=== PATIENT | male | born 1940 | race Caucasian/White ===

== ENCOUNTER 2020-11-11 20:17 | Emergency (ER) | payer MEDICARE, OTHER ==
[~2020-11-11] VITALS: Ht 172.7 cm; Wt 67.8 kg
[2020-11-11 20:22] VITALS: BP 167/89
--- NOTE | 2020-11-11 20:42 | ED Upper Extremity ---
General Chief Complaint: Upper Extremity Stated Complaint: LAC ON RT ARM Nursing Triage Note: Pt in per POV with c/o right arm being shut in car door. Noted large skin tear and bleeding controlled. Cleaned with hibicleans. Nursing Sepsis Screen: No Definite Risk History of Present Illness Date Seen by Provider: Nov 11, 2020 Time Seen by Provider: 20:17 Initial Comments 80-year-old male presents with a skin tear to his right forearm. Accidental injury hitting on a door. Denies any other pain or injury. Ambulatory and in no distress. Allergies and Home Medications Patient Home Medication List Home Medication List Reviewed: Yes Review of Systems Constitutional: No fever, No malaise, No weakness Musculoskeletal: No back pain, No joint pain, No neck pain Skin: see HPI, other (skin tear- right forearm) Past Ymydtxp-Zlxcdi-Pilxqp Hx Past Med/Social Hx: Reviewed Nursing Past Med/Soc Hx Patient Social History Alcohol Use: Occasionally Uses Smoking Status: Former Smoker Type Used: Cigarettes 2nd Hand Smoke Exposure: No Recent Infectious Disease Expo: No Immunizations Up To Date Tetanus Booster (TDap): Unknown Physical Exam Vital Signs Vital Signs - First Documented 11/11/20 20:22 Temp 36.3 Pulse 62 Resp 16 B/P (MAP) 167/89 (115) Pulse Ox 96 O2 Delivery Room Air Capillary Refill : Less Than 3 Seconds Height, Weight, BMI Height: '" Weight: lbs. oz. kg; 22.00 BMI Method: General Appearance: WD/WN, no apparent distress Shoulder: normal inspection, non-tender, no evidence of injury Elbow/Forearm: normal inspection, non-tender, normal ROM, soft tissue tenderness (superficial skin tear- dorsum R forearm- 10cm) Wrist: Yes normal inspection, Yes non-tender, Yes no evidence of injury, Yes normal ROM Hand: normal inspection, non-tender, no evidence of injury, normal ROM Neurologic/Tendon: normal sensation, normal motor functions, normal tendon functions, responds to pain Neurologic/Psychiatric: no motor/sensory deficits, alert, normal mood/affect Procedures/Interventions Other Wound Location forearm- right Wound Length (cm): 10 Wound's Depth, Shape: superficial (skin tear) Wound Explored: clean Betadine Prep?: No (sure cleans and rinse) Other Closure Supply: Steri Strip 1/2", Mastisol Sterile Dressing Applied?: Yes Progress/Results/Core Measures Results/Orders Vital Signs/I&O 11/11/20 20:22 Temp 36.3 Pulse 62 Resp 16 B/P (MAP) 167/89 (115) Pulse Ox 96 O2 Delivery Room Air Blood Pressure Mean: 115 Departure Impression Primary Impression: Skin tear Disposition: HOME, SELF-CARE Condition: Improved Departure-Patient Inst. Decision time for Depature: 20:41 Referrals: NATHAN MCDUFFIE MD (PCP/Family) Primary Care Physician Patient Instructions: Laceration Repair With Glue (DC) Add. Discharge Instructions: Follow up with Abraham in 3 to 5 days for evaluation of your skin tear. Watch for sign of infection All discharge instructions reviewed with patient and/or family. Voiced understanding. CATHERINE MARTINEZ DO Nov 11, 2020 20:42
== END 2020-11-11 20:48 | disposition home or self-care (01) ==
LOC: ER FS 20:19
DX: S51.811A Laceration without foreign body of right forearm, initial encounter (principal); Z87.891 Personal history of nicotine dependence; W23.0XXA Caught, crushed, jammed, or pinched between moving objects, initial encounter

== ENCOUNTER 2021-02-17 16:41 | Emergency (ER) | payer MEDICARE ==
[~2021-02-17] VITALS: Ht 175 cm; Wt 75.0 kg
[2021-02-17 16:43] VITALS: BP 140/61
--- NOTE | 2021-02-17 17:14 | ED General ---
General Chief Complaint: Skin/Wound Problems Stated Complaint: FALL Nursing Triage Note: PT TRIPPED AT [facility] AND HAS A SKIN TEAR ON HIS LEFT ELOBOW AND AN ABRASION ON HIS 3RD FINGER. NO LOSS OF CONSCIOUSNESS AND DENIES HITTING HIS HEAD. History of Present Illness Date Seen by Provider: Feb 17, 2021 Time Seen by Provider: 17:09 Initial Comments Patient presenting to the emergency department for evaluation of a left elbow skin tear that was sustained shortly prior to arrival at his snf. Patient cannot provide much help with history as he says he was out taking care of his horses when one of the horses knocked him down to the ground. alf reports that he tripped and sustained a mechanical fall. Patient denies having pain anywhere besides the skin on his left elbow. In the records it appears that he had a tetanus shot in 2018. Patient denies any head neck chest abdomen back or other extremity pain and no weakness numbness or tingling. He does have a history of dementia and takes Eliquis. He is in no acute distress with normal vital signs. Allergies and Home Medications Patient Home Medication List Home Medication List Reviewed: Yes Review of Systems Review of Systems Constitutional: no symptoms reported Respiratory: no symptoms reported Cardiovascular: no symptoms reported Gastrointestinal: no symptoms reported Musculoskeletal: no symptoms reported Skin: other (Skin tear on left elbow) Psychiatric/Neurological: No Symptoms Reported All Other Systems Reviewed Negative Unless Noted: Yes Past Tvuhmgd-Lazxvy-Pojotk Hx Patient Social History Tobacco Use?: No Use of E-Cig and/or Vaping dev: No Substance use?: No Alcohol Use?: No Pt feels they are or have been: No Immunizations Up To Date Tetanus Booster (TDap): Unknown First/Initial COVID19 Vaccinat: 08/26/20 Second COVID19 Vaccination Gigi: 09/23/20 Physical Exam Vital Signs Vital Signs - First Documented 02/17/21 16:43 Temp 37.2 Pulse 52 Resp 18 B/P (MAP) 140/61 (87) Pulse Ox 97 O2 Delivery Room Air Capillary Refill : Less Than 3 Seconds Height, Weight, BMI Height: '" Weight: lbs. oz. kg; 24.00 BMI Method: General Appearance: No Apparent Distress, Chronically ill HEENT: PERRL/EOMI Neck: Supple Respiratory: Lungs Clear, No Respiratory Distress Cardiovascular: Regular Rate, Rhythm Gastrointestinal: Non Tender, Soft Back: Normal Inspection, No Vertebral Tenderness Extremity: Other (Large hematoma to left elbow but no pain with range of motion of all his joints including his left elbow) Neurologic/Psychiatric: Alert, Disoriented Skin: Other (Skin tear to left elbow with no deep open wound and no foreign body seen in a bloodless field.) Progress/Results/Core Measures Suspected Sepsis SIRS Temperature: Pulse: 52 Respiratory Rate: 18 Blood Pressure 140 /61 Mean: 87 Results/Orders My Orders Orders - CARYL HALL DO Ct Head Wo (02/17/21 16:56) Elbow 2 View Left (02/17/21 16:56) Vital Signs/I&O 02/17/21 16:43 Temp 37.2 Pulse 52 Resp 18 B/P (MAP) 140/61 (87) Pulse Ox 97 O2 Delivery Room Air Capillary Refill : Less Than 3 Seconds Blood Pressure Mean: 87 Progress Note : Progress Note It appears the wound is more of a skin tear than anything else and there is no need for sutures so the wound was Steri-Stripped and dressed after being cleansed with Hibiclens and irrigated copiously. Patient is confused which may be his baseline but given he is on Eliquis I am going to do a CT head to rule out any bleeding and an x-ray of his left elbow. Imaging is negative for acute process and family confirmed that he is at his neurologic baseline. Given he appears well with normal vital signs benign physical exam and work-up he will be discharged back to the snf in stable condition told to follow with primary provider within 2 to 3 days and come back to the ED sooner with any worsening pain neurologic changes or other general concerns. Patient and family aware and agreeable with plan. Departure Impression Primary Impression: Elbow contusion Qualified Codes: S50.02XA - Contusion of left elbow, initial encounter Additional Impression: Skin tear of elbow without complication Qualified Codes: S51.012A - Laceration without foreign body of left elbow, initial encounter Disposition: 01 HOME, SELF-CARE Condition: Stable Departure-Patient Inst. Referrals: NATHAN MCDUFFIE MD (PCP/Family) Primary Care Physician Patient Instructions: Wound Care (DC) CARYL HALL DO Feb 17, 2021 17:14
--- NOTE | 2021-02-17 17:27 | Diagnostic Imaging Report ---
PROCEDURE: CT head without contrast. TECHNIQUE: Multiple contiguous axial images were obtained through the brain without the use of intravenous contrast. Auto Exposure Controls were utilized during the CT exam to meet ALARA standards for radiation dose reduction. INDICATION: Fall. No prior studies are available for comparison. Ventricles and sulci are prominent consistent with cerebral volume loss. There is moderate periventricular hypodensity noted consistent with senescent change. No sulcal effacement is seen. There is no midline shift. No acute intra-axial or extra-axial hemorrhage is detected. Cisterns are patent. Visualized paranasal sinuses are clear. IMPRESSION: Senescent and chronic changes. No acute intracranial process is detected. Dictated by: Dictated on workstation # [id number]
--- NOTE | 2021-02-17 17:28 | Diagnostic Imaging Report ---
INDICATION: Fall. TIME OF EXAM: 5:17 p.m. Two views of the left elbow were obtained. There appears to be some soft tissue swelling along the posterior elbow. Alignment is normal. No acute bony abnormality is detected. There is no dislocation. IMPRESSION: Soft tissue swelling posteriorly. No acute bony abnormality is detected. Dictated by: Dictated on workstation # [id number]
== END 2021-02-17 17:35 | disposition home or self-care (01) ==
LOC: EDUNIT# 16:41 → ER FS 16:45
DX: S51.012A Laceration without foreign body of left elbow, initial encounter (principal); F03.90 Unspecified dementia, unspecified severity, without behavioral disturbance, psychotic disturbance, mood disturbance, and anxiety; W01.0XXA Fall on same level from slipping, tripping and stumbling without subsequent striking against object, initial encounter
CPT/HCPCS: 70450; 73070

== ENCOUNTER 2021-04-12 14:09 | Emergency (ER) | payer MEDICARE ==
[~2021-04-12] VITALS: Ht 172.7 cm; Wt 75.0 kg
[2021-04-12 14:15] VITALS: BP 157/83
[2021-04-12 14:32] LABS: BASOPHILS # (AUTO) 0.1 10^3/uL (0.0-0.1); BASOPHILS % (AUTO) 1 % (0-10); EOSINOPHILS % (AUTO) 0 % (0-10); HEMATOCRIT 37 % (40-54); LYMPHOCYTES # (AUTO) 0.4 X 10^3 (1.0-4.0); LYMPHOCYTES % (AUTO) 5 % (12-44); MEAN CORPUSCULAR HEMOGLOBIN 28 pg (25-34); MEAN CORPUSCULAR HGB CONC 32 g/dL (32-36); MEAN CORPUSCULAR VOLUME 86 fL (80-99); MEAN PLATELET VOLUME 10.7 fL (9.0-12.2); MONOCYTES # (AUTO) 0.5 X 10^3 (0.0-1.0); MONOCYTES % (AUTO) 7 % (0-12); NEUTROPHILS % (AUTO) 86 % (42-75); PLATELET COUNT 168 10^3/uL (130-400)
--- NOTE | 2021-04-12 14:34 | ED General ---
General Chief Complaint: Respiratory Problems Stated Complaint: SOA Source of Information: Patient, EMS, [facility] Records History of Present Illness Date Seen by Provider: Apr 12, 2021 Time Seen by Provider: 14:12 Initial Comments 80-year-old demented male presenting from local senior living. He was found laying on the floor and reportedly had a low oxygen saturation. He had an unwitnessed fall in the head contusion to his right forehead and complained of pain to the right neck and right chest. He had a normal oxygen saturation for EMS when they arrived 92 to 94% on room air. He denies having any cough and is not active short of breath. He denies having any abdominal pain or nausea or vomiting. He was afebrile here in the ED. Allergies and Home Medications Allergies Coded Allergies: No Known Drug Allergies (Unverified , 04/12/21) Patient Home Medication List Home Medication List Reviewed: Yes Review of Systems Review of Systems Constitutional: No chills, No fever EENTM: other (Contusion to the right forehead) Cardiovascular: chest pain (mild right chest pain with palpation. no crepitus) Gastrointestinal: no symptoms reported Genitourinary: no symptoms reported Musculoskeletal: neck pain (right sided neck pain) Skin: other (contusion with erythema to right forehead) Psychiatric/Neurological: Other (dementia and has difficulty answering questions) Past Cynwfoi-Qlskgj-Kivzll Hx Immunizations Up To Date Tetanus Booster (TDap): Unknown Past Medical History Respiratory: No Cardiac: Yes Chronic Edema/Swelling, Hypertension, Irregular Heartbeat Neurological: Yes Dementia Physical Exam Vital Signs Vital Signs - First Documented 04/12/21 14:15 Temp 37.4 Pulse 83 Resp 18 B/P (MAP) 157/83 (107) Pulse Ox 93 O2 Delivery Room Air Capillary Refill : Height, Weight, BMI Height: '" Weight: lbs. oz. kg; 24.00 BMI Method: General Appearance: No Apparent Distress, Chronically ill HEENT: No Moist Mucous Membranes (slightly dry mucous membranes) Neck: Tender Lateral (mild tenderness to lateral muscles of neck on right side) Respiratory: No Accessory Muscle Use, No Respiratory Distress, Decreased Breath Sounds, Other (poor inspiratory effort on exam with decreased breath sounds in bases. tender to palpation right chest wall without crepitus) Cardiovascular: Normal Peripheral Pulses, Irregularly Irregular Gastrointestinal: Normal Bowel Sounds, No Pulsatile Mass, Non Tender, Soft Rectal: Deferred Extremity: Normal Capillary Refill, Pedal Edema Neurologic/Psychiatric: Alert; No Oriented x3 (oriented to self) Skin: Warm/Dry, Other (mild erythema to contusion on right forehead) Focused Exam Lactate Level 04/12/21 14:20: Lactic Acid Level 2.17*H Lactic Acid Level Laboratory Tests Test 04/12/21 14:20 Lactic Acid Level 2.17 MMOL/L (0.50-2.00) *H Progress/Results/Core Measures Suspected Sepsis SIRS Temperature: Pulse: Respiratory Rate: Laboratory Tests 04/12/21 14:20: White Blood Count 7.0 Blood Pressure / Mean: 04/12/21 14:20: Lactic Acid Level 2.17*H Laboratory Tests 04/12/21 14:20: Creatinine 0.75, INR Comment 1.5H, Platelet Count 168, Total Bilirubin 0.9 Results/Orders Lab Results Laboratory Tests Test 04/12/21 14:20 Range/Units White Blood Count 7.0 4.3-11.0 10^3/uL Red Blood Count 4.30 4.30-5.52 10^6/uL Hemoglobin 12.0 L 13.3-17.7 g/dL Hematocrit 37 L 40-54 % Mean Corpuscular Volume 86 80-99 fL Mean Corpuscular Hemoglobin 28 25-34 pg Mean Corpuscular Hemoglobin Concent 32 32-36 g/dL Red Cell Distribution Width 18.5 H 10.0-14.5 % Platelet Count 168 130-400 10^3/uL Mean Platelet Volume 10.7 9.0-12.2 fL Immature Granulocyte % (Auto) 0 % Neutrophils (%) (Auto) 86 H 42-75 % Lymphocytes (%) (Auto) 5 L 12-44 % Monocytes (%) (Auto) 7 0-12 % Eosinophils (%) (Auto) 0 0-10 % Basophils (%) (Auto) 1 0-10 % Neutrophils # (Auto) 6.0 1.8-7.8 X 10^3 Lymphocytes # (Auto) 0.4 L 1.0-4.0 X 10^3 Monocytes # (Auto) 0.5 0.0-1.0 X 10^3 Eosinophils # (Auto) 0.0 0.0-0.3 10^3/uL Basophils # (Auto) 0.1 0.0-0.1 10^3/uL Immature Granulocyte # (Auto) 0.0 0.0-0.1 10^3/uL Neutrophils % (Manual) 82 % Lymphocytes % (Manual) 10 % Monocytes % (Manual) 6 % Eosinophils % (Manual) 1 % Basophils % (Manual) 1 % Prothrombin Time 18.2 H 12.2-14.7 SEC INR Comment 1.5 H 0.8-1.4 Activated Partial Thromboplast Time 39 H 24-35 SEC Sodium Level 132 L 135-145 MMOL/L Potassium Level 4.7 3.6-5.0 MMOL/L Chloride Level 104 98-107 MMOL/L Carbon Dioxide Level 18 L 21-32 MMOL/L Anion Gap 10 5-14 MMOL/L Blood Urea Nitrogen 14 7-18 MG/DL Creatinine 0.75 0.60-1.30 MG/DL Estimat Glomerular Filtration Rate 100 BUN/Creatinine Ratio 19 Glucose Level 170 H 70-105 MG/DL Lactic Acid Level 2.17 *H 0.50-2.00 MMOL/L Calcium Level 7.4 L 8.5-10.1 MG/DL Corrected Calcium 8.4 L 8.5-10.1 MG/DL Total Bilirubin 0.9 0.1-1.0 MG/DL Aspartate Amino Transf (AST/SGOT) 40 H 5-34 U/L Alanine Aminotransferase (ALT/SGPT) 10 0-55 U/L Alkaline Phosphatase 67 40-136 U/L Troponin I < 0.30 <0.30 NG/ML C-Reactive Protein 4.64 H <0.50 MG/DL Total Protein 7.1 6.4-8.2 GM/DL Albumin 2.7 L 3.2-4.5 GM/DL My Orders Orders - JOSHUA GROVER MD Monitor-Rhythm Ecg Trace Only (04/12/21 14:27) Ed Iv/Invasive Line Start (04/12/21 14:27) Cbc With Automated Diff (04/12/21 14:27) Comprehensive Metabolic Panel (04/12/21 14:27) Crp Fs (04/12/21 14:27) Troponin I Fs (04/12/21 14:27) Protime With Inr (04/12/21 14:27) Partial Thromboplastin Time (04/12/21 14:27) Ekg Tracing (04/12/21 14:27) Blood Culture (04/12/21 14:27) Ua Culture If Indicated (04/12/21 14:27) Ct Head/Cervical Spine Wo (04/12/21 14:27) Ct Chest Wo (04/12/21 14:27) Lactic Acid Analyzer (04/12/21 14:27) Manual Differential (04/12/21 14:20) Vital Signs/I&O 04/12/21 14:15 Temp 37.4 Pulse 83 Resp 18 B/P (MAP) 157/83 (107) Pulse Ox 93 O2 Delivery Room Air Capillary Refill : Progress Note #1: Progress Note Obtain labs, chest x-ray, lactic acid, blood culture, CT of the head, cervical spine, chest to evaluate for rib fractures or infection. Progress Note #2: Progress Note Labs appear stable but he did have a slight elevation in his lactic acid to 2.17. His CT head and cervical spine did not show acute process but he did have motion artifact as well. There is no evidence of acute cranial hemorrhage. His CT chest did not show any rib fractures. It look like he had a chronic L1 compression fracture. He has bilateral pleural effusions. Patient remained on room air and was having an oxygen saturation of 96 to 98% even while he was sleeping. He had no distress while he was here in the ED. The pleural effusions are likely chronic and did not appear traumatic from today's fall. There is no sign of skull fracture or bleeding intracranially. Will discharge back to the senior living and encouraged follow-up with primary about the pleural effusions and falling. Advised to use a walker or have assistance with ambulation ECG Initial ECG Impression Date: Apr 12, 2021 Initial ECG Impression Time: 14:18 Initial ECG Rate: 68 Initial ECG Rhythm: A Fib/Flutter Initial ECG Comparisson: No Previous ECG Available Comment Atrial flutter with variable AV block. Heart rate of [address] elevation. Probable right ventricular hypertrophy. QT interval 422 ms with a QTc interval 449 ms. No prior tracing available for comparison. Diagnostic Imaging Diagonstic Imaging: CT Plain Films/CT/US/NM/MRI: chest, c-spine, head Comments [facility] [place], [place] NAME: EARLE SCHERER [facility] REC#: [id number] PT STATUS: DEP ER : 1940 PHYSICIAN: JOSHUA GROVER MD ADMIT DATE: 04/12/21/ER FS Signed Date of Exam:04/12/21 CT HEAD/CERVICAL SPINE WO Clinical indication: Patient status post fall with head contusion. Patient has right-sided pain. Patient has difficulty lying flat. Exam: Head CT without IV contrast with sagittal and coronal reformations. Axial CT scan of the cervical spine with sagittal and coronal reformations. Auto Exposure Controls were utilized during the CT exam to meet ALARA standards for radiation dose reduction. Comparison: Head CT without contrast dated 02/17/2021. Findings: Head CT: There is no interval acute intracranial hemorrhage. There is no brain herniation midline shift. There is no hydrocephalus. There is diffuse brain parenchymal volume loss again seen with the temporal lobes affected the most. There is diffuse patchy and confluent areas of low-attenuation white matter changes involving both cerebral hemispheres and periventricular regions, likely representing chronic small vessel ischemic disease and leukoaraiosis. Basal cisterns are unremarkable. The extracranial soft tissues, skull and orbits are unremarkable. There is no skull fracture. Motion artifact limits evaluation of portions of the head and skull. Paranasal sinuses and mastoid air cells are clear. CT cervical spine: There is motion artifact causing stairstep artifact of the C2 and C3 vertebra limiting evaluation for fractures. Besides the areas of artifact, there is no gross evidence of acute cervical spine fracture. There is grade 1 anterolisthesis of C3 on C4 with solid bony bridging/fusion. There is grade 1 retrolisthesis of C3 on C4 with severe loss of disk space height and hypertrophic vertebral body spurs. There is grade 1 anterolisthesis of C7 on T1 with moderate loss of disk space height. There is moderate loss of disk space height and hypertrophic spurs involving the C6-C7 level and severe loss of disk space height with hypertrophic spurs involving the C5-C6 level. There is multilevel neural foramen narrowing and central canal narrowing. The neck soft tissue structures show no significant abnormality. There is a small right pleural effusion. Visualized upper lung ortiz are otherwise unremarkable. Impression: 1: Motion artifact limits evaluation of the head and cervical spine exam. This limits evaluation. 2: There is no evidence of intracranial hemorrhage or skull fracture. 3: There is no acute cervical spine fracture. 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 Dictated by: Dictated on workstation # [id number] Dict: 04/12/21 1512 Trans: 04/12/211741 [facility] [phone] Interpreted by: LEANA CH MD Electronically signed by: LEANA CH MD 04/12/211741 [facility] [place], [place] NAME: EARLE SCHERER [facility] REC#: [id number] PT STATUS: DEP ER : 1940 PHYSICIAN: JOSHUA GROVER MD ADMIT DATE: 04/12/21/ER FS Signed Date of Exam:04/12/21 CT CHEST WO PROCEDURE: CT chest without contrast. TECHNIQUE: Multiple contiguous axial images were obtained through the chest without the use of intravenous contrast. Auto Exposure Controls were utilized during the CT exam to meet ALARA standards for radiation dose reduction. DATE: April 12, 2021. COMPARISON: None. INDICATION: 80-year-old male, chest pain and shortness of breath. PROCEDURE: Axial noncontrasted CT images of the chest. Noncontrasted limits the evaluation of the mediastinum and vascular structures. FINDINGS: There is respiratory motion artifact. There is a large right and ijgza-ai-hghuqwvh left pleural effusion. There is nonspecific right lower lobe airspace consolidation without particularly prominent volume loss. There is no identified noncalcified pulmonary nodule or lung mass. There is no pneumothorax. The trachea is normal in caliber. The main pulmonary artery diameter measures 3.1 cm which is beyond upper limits of normal and may be associated with pulmonary artery hypertension. The heart is mildly enlarged. There is no pericardial effusion. There are coronary artery calcifications and additional areas of atherosclerotic disease. There is no identified abnormally enlarged mediastinal or axillary lymph node specifically meeting CT size criteria for adenopathy. There is generalized subcutaneous edema. Patient is status post cholecystectomy. There are median sternotomy wires. There is a compression deformity of L1 with essentially complete vertebral body height loss centrally. There is no identified fracture line. IMPRESSION: 1. Large right and jnvih-xv-egaxmwzu left pleural effusions. 2. Nonspecific right lower lobe airspace consolidation which may relate to atelectasis, aspiration or pneumonia. 3. Mildly dilated main pulmonary artery diameter suggesting pulmonary artery hypertension with mild cardiomegaly. 4. Generalized subcutaneous edema. 5. Compression deformity of L1 with complete vertebral body height loss. This is likely chronic in age although comparison imaging is not available to assess for stability. Dictated by: Dictated on workstation # [id number] Dict: 04/12/21 1520 Trans: 04/12/21 1701 [facility] [phone] Interpreted by: GERI DUMONT MD Electronically signed by: GERI DUMONT MD 04/12/211700 Reviewed: Reviewed by Me Departure Impression Primary Impression: Contusion of forehead Qualified Codes: S00.83XA - Contusion of other part of head, initial encounter Additional Impressions: Fall at senior living Qualified Codes: W19.XXXA - Unspecified fall, initial encounter; Y92.129 - Unspecified place in senior living as the place of occurrence of the external cause Pleural effusion Disposition: 01 HOME, SELF-CARE Condition: Stable Departure-Patient Inst. Decision time for Depature: 16:13 Referrals: NATHAN MCDUFFIE MD (PCP/Family) Primary Care Physician Patient Instructions: Preventing Falls ED, Minor Head Injury, Adult ED, Pleural Effusion (DC) Add. Discharge Instructions: Follow up with your regular providers about your pleural effusions and they may need to adjust your medicines to help with the fluid on your lungs. No fractures or broken bones seen on imaging today. Use walker to help with ambulating to help prevent falls. All discharge instructions reviewed with patient and/or family. Voiced understanding. JOSHUA GROVER MD Apr 12, 2021 14:34
[2021-04-12 14:36] LABS: INR 1.5 (0.8-1.4); PROTHROMBIN TIME PATIENT 18.2 SEC (12.2-14.7)
[2021-04-12 14:43] LABS: ALANINE AMINOTRANSFERASE 10 U/L (0-55); ALBUMIN 2.7 GM/DL (3.2-4.5); ALKALINE PHOSPHATASE 67 U/L (40-136); BILIRUBIN,TOTAL 0.9 MG/DL (0.1-1.0); BUN/CREATININE RATIO 19; CALCIUM 7.4 MG/DL (8.5-10.1); CARBON DIOXIDE 18 MMOL/L (21-32); CHLORIDE 104 MMOL/L (98-107); CREATININE SERUM 0.75 MG/DL (0.60-1.30); GFR ESTIMATED 100; GLUCOSE 170 MG/DL (70-105); POTASSIUM 4.7 MMOL/L (3.6-5.0); SODIUM 132 MMOL/L (135-145); TOTAL PROTEIN 7.1 GM/DL (6.4-8.2)
[2021-04-12 14:49] LABS: BASOPHILS % (MANUAL) 1 %; EOSINOPHILS % (MANUAL) 1 %; LYMPHOCYTES % (MANUAL) 10 %; MONOCYTES % (MANUAL) 6 %; NEUTROPHILS % (MANUAL) 82 %
--- NOTE | 2021-04-12 15:28 | Diagnostic Imaging Report ---
Clinical indication: Patient status post fall with head contusion. Patient has right-sided pain. Patient has difficulty lying flat. Exam: Head CT without IV contrast with sagittal and coronal reformations. Axial CT scan of the cervical spine with sagittal and coronal reformations. Auto Exposure Controls were utilized during the CT exam to meet ALARA standards for radiation dose reduction. Comparison: Head CT without contrast dated 02/17/2021. Findings: Head CT: There is no interval acute intracranial hemorrhage. There is no brain herniation midline shift. There is no hydrocephalus. There is diffuse brain parenchymal volume loss again seen with the temporal lobes affected the most. There is diffuse patchy and confluent areas of low-attenuation white matter changes involving both cerebral hemispheres and periventricular regions, likely representing chronic small vessel ischemic disease and leukoaraiosis. Basal cisterns are unremarkable. The extracranial soft tissues, skull and orbits are unremarkable. There is no skull fracture. Motion artifact limits evaluation of portions of the head and skull. Paranasal sinuses and mastoid air cells are clear. CT cervical spine: There is motion artifact causing stairstep artifact of the C2 and C3 vertebra limiting evaluation for fractures. Besides the areas of artifact, there is no gross evidence of acute cervical spine fracture. There is grade 1 anterolisthesis of C3 on C4 with solid bony bridging/fusion. There is grade 1 retrolisthesis of C3 on C4 with severe loss of disk space height and hypertrophic vertebral body spurs. There is grade 1 anterolisthesis of C7 on T1 with moderate loss of disk space height. There is moderate loss of disk space height and hypertrophic spurs involving the C6-C7 level and severe loss of disk space height with hypertrophic spurs involving the C5-C6 level. There is multilevel neural foramen narrowing and central canal narrowing. The neck soft tissue structures show no significant abnormality. There is a small right pleural effusion. Visualized upper lung ortiz are otherwise unremarkable. Impression: 1: Motion artifact limits evaluation of the head and cervical spine exam. This limits evaluation. 2: There is no evidence of intracranial hemorrhage or skull fracture. 3: There is no acute cervical spine fracture. 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 Dictated by: Dictated on workstation # [id number]
--- NOTE | 2021-04-12 15:31 | Diagnostic Imaging Report ---
PROCEDURE: CT chest without contrast. TECHNIQUE: Multiple contiguous axial images were obtained through the chest without the use of intravenous contrast. Auto Exposure Controls were utilized during the CT exam to meet ALARA standards for radiation dose reduction. DATE: April 12, 2021. COMPARISON: None. INDICATION: 80-year-old male, chest pain and shortness of breath. PROCEDURE: Axial noncontrasted CT images of the chest. Noncontrasted limits the evaluation of the mediastinum and vascular structures. FINDINGS: There is respiratory motion artifact. There is a large right and sabgt-tt-beybaahl left pleural effusion. There is nonspecific right lower lobe airspace consolidation without particularly prominent volume loss. There is no identified noncalcified pulmonary nodule or lung mass. There is no pneumothorax. The trachea is normal in caliber. The main pulmonary artery diameter measures 3.1 cm which is beyond upper limits of normal and may be associated with pulmonary artery hypertension. The heart is mildly enlarged. There is no pericardial effusion. There are coronary artery calcifications and additional areas of atherosclerotic disease. There is no identified abnormally enlarged mediastinal or axillary lymph node specifically meeting CT size criteria for adenopathy. There is generalized subcutaneous edema. Patient is status post cholecystectomy. There are median sternotomy wires. There is a compression deformity of L1 with essentially complete vertebral body height loss centrally. There is no identified fracture line. IMPRESSION: 1. Large right and mxssw-fm-wtrrklua left pleural effusions. 2. Nonspecific right lower lobe airspace consolidation which may relate to atelectasis, aspiration or pneumonia. 3. Mildly dilated main pulmonary artery diameter suggesting pulmonary artery hypertension with mild cardiomegaly. 4. Generalized subcutaneous edema. 5. Compression deformity of L1 with complete vertebral body height loss. This is likely chronic in age although comparison imaging is not available to assess for stability. Dictated by: Dictated on workstation # [id number]
== END 2021-04-12 16:14 | disposition home or self-care (01) ==
LOC: EDUNIT# 14:09 → ER FS 14:12
DX: S00.83XA Contusion of other part of head, initial encounter (principal); J90 Pleural effusion, not elsewhere classified; I10 Essential (primary) hypertension; F03.90 Unspecified dementia, unspecified severity, without behavioral disturbance, psychotic disturbance, mood disturbance, and anxiety; W19.XXXA Unspecified fall, initial encounter; Y92.129 Unspecified place in nursing home as the place of occurrence of the external cause
CPT/HCPCS: 36415; 70450; 71250; 72125; 80053; 83605; 84484; 85007; 85027; 85610; 85730; 86141; 87040; 87077; 93005; 93041

== ENCOUNTER 2023-05-01 01:42 | Emergency (ER) | payer MEDICARE ==
[~2023-05-01] VITALS: Ht 175 cm; Wt 75.0 kg
--- NOTE | 2023-05-01 01:52 | ED Fall/Injury ---
General Chief Complaint: Trauma-Non Activation Stated Complaint: FALL History of Present Illness Date Seen by Provider: May 01, 2023 Time Seen by Provider: 01:51 Initial Comments 83-year-old male with PMH of cerebral palsy/dementia/rheumatoid arthritis/ HTN/irregular heartbeat on Eliquis, is [facility] for an unwitnessed fall. [facility] staff found the patient on the floor and saw that he had a left eye swelling and laceration and some skin tears on both elbows and his left knee. Patient complains of left eye brow pain and denies pain anywhere else. Denies nausea and vomiting, blurry vision, dizziness. Allergies and Home Medications Allergies Coded Allergies: No Known Drug Allergies (Unverified , 04/12/21) Patient Home Medication List Home Medication List Reviewed: Yes Review of Systems Review of Systems Constitutional: no symptoms reported, see HPI Skin: see HPI, other (Laceration) Psychiatric/Neurological: Other (Fall) Past Lujdzkl-Foepmd-Bhdbdm Hx Immunizations Up To Date Tetanus Booster (TDap): Unknown First/Initial COVID19 Vaccinat: 08/26/20 Second COVID19 Vaccination Gigi: 09/23/20 Past Medical History Surgery/Hospitalization HX: DEMETIA, IRREGULAR HEART BEAT, ANEMIA, HYPERTENSIVE HEART DISEASE Respiratory: No Cardiac: Yes Chronic Edema/Swelling, Hypertension, Irregular Heartbeat Neurological: Yes Dementia Physical Exam Vital Signs Vital Signs - First Documented Capillary Refill : Height, Weight, BMI Height: '" Weight: lbs. oz. kg; 25.00 BMI Method: General Appearance: WD/WN, no apparent distress HEENT: PERRL/EOMI, other (Left orbital swelling with laceration to left eyebrow which appears ecchymotic and macerated and is approximately 2 cm long horizontal. No active bleeding.) Neck: non-tender, full range of motion, supple, normal inspection Cardiovascular: regular rate, rhythm, no edema Respiratory: chest non-tender, lungs clear, normal breath sounds Gastrointestinal: normal bowel sounds, non tender, soft Pelvic: normal external exam Extremities: normal range of motion, other (Bilateral elbows show multiple skin tears, and left knee shows an abrasion to the left knee. Range of movement is unrestricted. There is some bruising along patient's buttock and hip however he denies any pain or tenderness along the area) Neurologic/Psychiatric: analytics leader II-XII nml as tested, no motor/sensory deficits (Except his baseline cerebral palsy), alert Progress/Results/Core Measures Results/Orders My Orders Orders - NYO IVERSON MD Ct Head/Face/Cervical Wo (05/01/23 01:52) Ice: Apply To Affected Area (05/01/23 02:57) Vital Signs/I&O 05/01/23 05/01/23 01:50 01:50 Temp 36.4 36.4 Pulse 97 97 Resp 18 18 B/P (MAP) 141/65 (90) 141/65 (90) Pulse Ox 89 89 O2 Delivery Room Air Room Air Progress Progress Note : Progress Note FALL: LEFT ORBITAL HEMATOMA/ LEFT EYEBROW LACERATION/ BILATERAL ELBOW SKIN TEARS/ LEFT KNEE ABRASION: - CT HEAD/ MAXILLOFACIAL/ C-SPINE: Left periorbital soft tissue hematoma a lot of the CT was obscured by motion artifact since patient keeps moving C-spine shows no evidence of any acute fracture or malalignment. Patient has an anterior C4-C5 fusion which is chronic with multiple level degenerative changes. No spinal canal stenosis. -Two Steri-Strips applied to left eyebrow laceration with reasonable apposition -All wounds irrigated with NS and bandages placed. -Advised ice application to left eye hematoma and pain control with Tylenol as needed every 4 hours. -Follow-up with PCP within the next 3 days. - Concussion precautions given with sleep monitoring and info on when to return to the ER. Adequate hydration advised. -The patient was seen in the ED, and treated appropriately to presentation at a specific point in time. Patient and [facility] staff are informed that there is a possibility that disease and illness can evolve and change in acuity rapidly or slowly after patient is discharged from the ER. Precautionary advice given to the patient for immediate return to ER if symptoms worsen or do not resolve, and to seek emergency care sooner rather than later. Pt and [facility] staff also advised on the importance of PCP follow up and compliance with management and follow up plan. [facility] staff verbally expressed understanding. Departure Impression Primary Impression: Hematoma of left orbit Additional Impressions: Laceration of left eyebrow Qualified Codes: S01.112A - Laceration without foreign body of left eyelid and periocular area, initial encounter Abrasion, left knee, initial encounter Skin tear of elbow without complication Qualified Codes: S51.019A - Laceration without foreign body of unspecified elbow, initial encounter Fall Qualified Codes: W19.XXXA - Unspecified fall, initial encounter Disposition: 01 HOME, SELF-CARE Condition: Stable Departure-Patient Inst. Referrals: NATHAN MCDUFFIE MD (PCP/Family) Primary Care Physician Patient Instructions: Concussion, Adult ED, Preventing Falls ED, Skin Abrasions (DC), Taking care of cuts, scrapes, and puncture wounds, Wound Care Add. Discharge Instructions: -Advised ice application to left eye hematoma and pain control with Tylenol as needed every 4 hours. -Follow-up with PCP within the next 3 days. - Concussion precautions given with sleep monitoring and info on when to return to the ER. Adequate hydration advised. All discharge instructions reviewed with patient and/or family. Voiced understanding. NOY IVERSON MD May 01, 2023 01:51
[2023-05-01 04:47] VITALS: BP 110/46
--- NOTE | 2023-05-01 07:09 | Diagnostic Imaging Report ---
EXAMINATION: CT head, face and CT cervical spine without contrast. TECHNIQUE: Multiple contiguous axial images were obtained through the face, brain and cervical spine without the use of intravenous contrast. Sagittal and coronal reformations through the cervical spine were then performed. All CT scans use one or more of the following dose optimizing techniques: automated exposure control, MA and/or KvP adjustment based on patient size and exam type or iterative reconstruction. HISTORY: Head and neck and face pain after fall COMPARISON: 04/12/2021 FINDINGS: HEAD: Moderate diffuse cerebral volume loss with proportional enlargement of the ventricles and sulci. Moderate hypodensities throughout the supratentorial white matter posterior hemispheres. No acute intracranial hemorrhage or abnormal extra-axial fluid collections are present. No hyperdense vessel. The calvarium is intact. The mastoid air cells are clear. The visualized paranasal sinuses are clear. The globes are intact. C-SPINE: There are multilevel surgical degenerative changes seen throughout the cervical spine. No obvious acute fracture is seen. No significant facet hypertrophy. There is multilevel cervical spondylosis. The paraspinous soft tissues are normal. The visualized thyroid gland is normal. The visualized lung apices are normal. FACE: No obvious fracture is seen in the face. The nasal bones are normal. Mandible and maxillae are normal. Zygomatic arches are normal. Pterygoid plates are normal. There is significant left periorbital swelling and hematoma. IMPRESSION: 1. Overall limited diagnostic value of these exams secondary to patient motion and inability to follow instructions. Acute process cannot be excluded but overall no obvious acute abnormality is seen. 2. No obvious acute intracranial abnormality. 3. Surgical degenerative changes of the cervical spine without obvious fracture. 4. Significant left periorbital edema without obvious facial fracture. 5. Agree with preliminary interpretation. Dictated by: Dictated on workstation # [id number]
== END 2023-05-01 04:47 | disposition home or self-care (01) ==
LOC: EDUNIT# 01:42 → ER FS 01:43
DX: S01.112A Laceration without foreign body of left eyelid and periocular area, initial encounter (principal); S51.012A Laceration without foreign body of left elbow, initial encounter; S51.011A Laceration without foreign body of right elbow, initial encounter; S30.0XXA Contusion of lower back and pelvis, initial encounter; S70.00XA Contusion of unspecified hip, initial encounter; S80.212A Abrasion, left knee, initial encounter; Z79.01 Long term (current) use of anticoagulants; W19.XXXA Unspecified fall, initial encounter; Y92.129 Unspecified place in nursing home as the place of occurrence of the external cause
CPT/HCPCS: 12002; 12011; 70450; 70486; 72125